=== PATIENT | male | born 1955 | race Caucasian/White ===

== ENCOUNTER → 2016-05-19 | Outpatient (CLI) | payer OTHER ==
--- NOTE | 2016-05-19 12:10 | KCIC ---
PROCEDURE MR of the right knee HISTORY Right knee pain. Previous surgery in 1980 and 1985. Pain is chronic and medial. Posterior swelling. TECHNIQUE Standard multiplanar sequences are obtained. COMPARISON None FINDINGS Medial meniscus is small and distorted with some abnormal signal, compatible at least partially with prior meniscectomy. There is some T2 signal traversing the posterior horn compatible with a superimposed recurrent tear. Signal identified within the medial meniscus Mild signal involving the posterior horn of the lateral meniscus with subtle articular surface violation compatible with a small tear Anterior cruciate ligament intact posterior cruciate ligament intact medial collateral ligament demonstrates proximal scarring without acute tear. Iliotibial band unremarkable. Fibular collateral ligament, biceps femoris tendon and popliteus tendon are intact. Mild thickening and signal within the proximal patellar tendon compatible with mild tendinosis Small joint effusion. No evidence of an osteochondral loose body. No bone lesion or acute fracture. No acute soft tissue injury. Subcutaneous edema along the anterior knee, greatest anterior to the patellar tendon. No bone lesion. No acute fracture. No acute soft tissue injury. Severe chondromalacia at the medial joint compartment. Mild chondromalacia at the lateral joint compartment. Mild chondromalacia at the patella with a tiny partial thickness fissure. IMPRESSION 1. Small distorted medial meniscus compatible with prior meniscectomy, although recurrent tearing is suspected. 2. Mild lateral meniscal tear. 3. Primary osteoarthritis. Electronically signed by: Will Haji MD (May 19, 2016 12:09:38)
--- NOTE | 2016-05-19 12:34 | KCIC ---
PROCEDURE MR of the left knee HISTORY Left knee pain. Pain is sharp when standing. Pain is chronic and medial. Previous surgery 1985. COMPARISON None TECHNIQUE Standard multiplanar sequences are obtained. FINDINGS Degenerative tear of the medial meniscus. Mild lateral meniscal signal, demonstrating possible undersurface violation on a single sagittal slice. Anterior and posterior cruciate ligaments are intact. Medial collateral ligament is intact. Iliotibial band unremarkable. Fibular collateral ligament, biceps femoris and popliteus tendon are intact. Extensor mechanism is intact. Small joint effusion. No evidence of an osteochondral loose body. Mild chondromalacia of the patella. Mild chondromalacia at the medial joint compartment. No bone lesion. No acute fracture. No acute soft tissue injury. No significant Rodriguez cyst. Mild prepatellar subcutaneous edema. IMPRESSION 1. Medial meniscal tear. 2. Possible small lateral meniscal tear. 3. Primary osteoarthritis. Electronically signed by: Will Haji MD (May 19, 2016 12:31:45)
--- NOTE | 2016-05-19 15:12 | KCIC ---
PROCEDURE MRI of the lumbar spine without contrast 05/19/2016 HISTORY Chronic low back pain for years which radiates down both legs. TECHNIQUE Unenhanced T1 weighted and T2 weighted sagittal and axial and inversion recovery sagittal images of the lumbar spine were obtained. FINDINGS Minimal S-shaped curvature of the thoracolumbar spine is seen. Degenerative signal changes are seen involving all of the discs of the lumbar spine. Degenerative signal changes are seen within the marrow surrounding these discs. The conus medullaris is normal in morphology, position, and signal characteristics. Several rounded high signal intensity lesions are seen scattered throughout both kidneys on the T2 weighted images. These measure 3 millimeters to 4.6 centimeters in size. They likely represent cysts. At the T12-L1 disc space there is mild generalized disc bulge. Superimposed on this disc bulge is a focal central disc protrusion. This measures 2 millimeters in AP diameter. Degenerative changes are seen involving the facet joints bilaterally. These findings efface the anterior CSF without resulting in significant central spinal canal or neural foraminal stenosis. At the L1-2 disc space there is a mild generalized disc bulge. Superimposed on this disc bulge is a central/left paracentral focal disc protrusion. This measures 3 millimeters in AP diameter. Degenerative changes are seen involve the facet joints bilaterally. These findings do not result in significant central spinal canal or neural foraminal stenosis. At the L2-3 disc space there is a mild generalized disc bulge. Degenerative changes are seen involving the facet joints bilaterally. There is mild ligamentum flavum hypertrophy bilaterally. These findings when combined do not result in significant central spinal canal or neural foraminal stenosis. At the L3-4 disc space there is a mild generalized disc bulge. This is slightly eccentric to the left. Degenerative changes are seen involving the facet joints bilaterally. There is mild ligamentum flavum hypertrophy bilaterally. These findings when combined do not result in significant central spinal canal or neural foraminal stenosis. At the L3-4 disc space there is a mild generalized disc bulge. Superimposed on this disc bulge is a central/right paracentral focal disc protrusion. This measures 3 millimeters in AP diameter. Degenerative changes are seen involving the facet joints bilaterally. There is mild ligamentum flavum hypertrophy bilaterally. These findings when combined do not result in significant central spinal canal or neural foraminal stenosis. At the L5-S1 disc space there is a mild generalized disc bulge. Degenerative changes are seen involving the facet joints bilaterally. These findings when combined do not result in significant central spinal canal or neural foraminal stenosis. IMPRESSION The changes of degenerative disc disease are seen throughout the lower thoracic and throughout the lumbar spine. These findings do not result in significant central spinal canal or neural foraminal stenosis at any level. Electronically signed by: Yuan Wilkes MD (May 19, 2016 15:11:58)
== END | disposition home or self-care (01) ==
LOC: KCIC MRI 11:08
PROVIDERS: ATTEND Internal Medicine
DX: M54.5 Low back pain (principal); M25.561 Pain in right knee; S83.281A Other tear of lateral meniscus, current injury, right knee, initial encounter; M17.11 Unilateral primary osteoarthritis, right knee
CPT/HCPCS: 72148; 73721